=== PATIENT | male | born 1945 | race Caucasian/White ===

== ENCOUNTER 2019-06-06 15:57 | Emergency (ER) | payer MEDICARE, BC ==
[~2019-06-06] VITALS: Ht 182.9 cm; Wt 180.0 kg
[~2019-06-06 15:57] MED LIST: LIDOcaine 1% W/epiNEPHrine 1:100,000 20ml vial ONE
[2019-06-06 16:02] VITALS: BP 138/96
[2019-06-06] MEDS ORDERED: ceFAZolin 1gm IM kit IM ONE (17:05)
[2019-06-06] MEDS ORDERED: CEPH500C5 PO (17:07)
[2019-06-06] MEDS ORDERED: TETanus/Pertussis (Acell)/Diphther VAC/PF (Tdap-Adult) 0.5ml syringe IMVAC ONE (18:20)
[2019-06-06] MEDS ORDERED: bacitracin 15gm ointment TP ONE (18:20)
== END 2019-06-06 19:11 | disposition home or self-care (01) ==
LOC: ER 15:58
DX: S61.312A Laceration without foreign body of right middle finger with damage to nail, initial encounter (principal); S61.310A Laceration without foreign body of right index finger with damage to nail, initial encounter; S60.311A Abrasion of right thumb, initial encounter; C91.10 Chronic lymphocytic leukemia of B-cell type not having achieved remission; Z85.46 Personal history of malignant neoplasm of prostate; Z98.890 Other specified postprocedural states; Z88.0 Allergy status to penicillin; Z79.2 Long term (current) use of antibiotics; W26.8XXA Contact with other sharp object(s), not elsewhere classified, initial encounter; Y93.89 Activity, other specified; Y92.89 Other specified places as the place of occurrence of the external cause; Y99.8 Other external cause status
CPT/HCPCS: 12002; 73140; 90471; 90715; 96372; 99284; J0690